=== PATIENT | male | born 1955 | race Caucasian/White ===

== ENCOUNTER 2023-09-19 06:06 | Observation (INO) ==
[~2023-09-19 06:06] MED LIST: HYDROmorphone 1 MG/1 ML SYRINGE IV PRN; Naloxone 0.4 mg VIAL 0.4 mg/ml 1 ml VIAL IV PRN; Ondansetron 4 mg VIAL 2 MG/ML 2 ml VIAL IV PRN; fentaNYL 100 mcg/2 ml 50 MCG/ML VIAL IV PRN
[2023-09-19] MEDS ORDERED: ROPIVACAINE 5 MG/ML 30 ML BTL (0.5%) ONE ×2 (07:10→09:52)
[2023-09-19] MEDS ORDERED: Tranexamic Acid 1 GM/100ML BAG 2,000 MG/200 ML BAG IV ONE (07:23)
[2023-09-19] MEDS ORDERED: ceFAZolin 2 GM PREMIX 2 GM/50 ML BAG ONE (07:23)
[2023-09-19] MEDS ORDERED: Midazolam 2 mg/2 ml VIAL 1 mg/ml 2 ml VIAL (2 mg) ONE (07:33)
[2023-09-19 07:36] LABS: Rapid COVID-19 Molecular Undetected (Undetected)
[2023-09-19] MEDS: Lactated Ringers 1000 ml BAG 1,000 ML IV SCH ×2 (07:44→12:52)
[2023-09-19] MEDS: Buffered Lidocaine 1% SYRIN 1 ml INTRADERM ONE (07:44)
[2023-09-19] MEDS ORDERED: Phenylephrine IV 10 MG/ML 1 ml VIAL ONE (08:29)
[2023-09-19] MEDS ORDERED: Lidocaine 2% PF 5 ML VIAL ONE (08:29)
[2023-09-19] MEDS ORDERED: Propofol 1,000 MG/100 ML BTL ONE (08:29)
[2023-09-19] MEDS ORDERED: Morphine 2 MG/ML SYRINGE IV PRN (10:20)
[2023-09-19] MEDS ORDERED: Magnesium Hydroxide LIQ 30 ML UDC PO PRN (10:20)
[2023-09-19] MEDS ORDERED: Ondansetron 4 mg VIAL 2 MG/ML 2 ml VIAL IV PRN (10:20)
[2023-09-19] MEDS ORDERED: Lactulose 30 ml UDC PO PRN (10:20)
[2023-09-19] MEDS ORDERED: Ondansetron ODT 4 mg TAB 4 MG TAB PO PRN (10:20)
[2023-09-19] MEDS ORDERED: Calcium Carb (TUMS) 500 mg CHEW TAB PO PRN (13:47)
[2023-09-19] MEDS: ceFAZolin 1 GM ADVAN 1 GM in NS 0.9% 50 ML 50 ML IVPB SCH (17:26)
[2023-09-19 17:27] VITALS: BP 132/73
[2023-09-19] MEDS ORDERED: Magnesium Hydroxide LIQ 30 ML UDC PO SCH (21:00)
[2023-09-20] MEDS ORDERED: Vitamin THERAPEUTIC TAB PO SCH (09:00)
== END 2023-09-19 18:30 | disposition home or self-care (01) ==
LOC: INTOOBSV 06:06 → AA 06:06 → SSU 10:20
PROVIDERS: ADMIT Orthopaedic Surgery Adult Reconstructive Orthopaedic Surgery; ATTEND Orthopaedic Surgery Adult Reconstructive Orthopaedic Surgery

== ENCOUNTER 2024-09-15 05:45 | Observation (INO) ==
[~2024-09-15 05:45] MED LIST changes: -HYDROmorphone 1 MG/1 ML SYRINGE IV PRN; +Metoclopramide 5 MG/ML VIAL (10 mg) IV PRN; +NS 0.45% 1000 ml BAG 1,000 ML IV SCH
[2024-09-15] MEDS ORDERED: Tranexamic Acid 1 GM/100ML BAG 2,000 MG/200 ML BAG IV ONE (06:13)
[2024-09-15] MEDS ORDERED: ceFAZolin 2 GM PREMIX 2 GM/50 ML BAG ONE (06:13)
[2024-09-15] MEDS ORDERED: ROPIVACAINE 5 MG/ML 30 ML BTL (0.5%) ONE (06:29)
[2024-09-15] MEDS ORDERED: Midazolam 2 mg/2 ml VIAL 1 mg/ml 2 ml VIAL (2 mg) ONE ×2 (06:49→07:27)
[2024-09-15] MEDS: Lactated Ringers 1000 ml BAG 1,000 ML IV SCH ×2 (06:49→14:22)
[2024-09-15] MEDS ORDERED: Phenylephrine IV 10 MG/ML 1 ml VIAL ONE (06:50)
[2024-09-15] MEDS ORDERED: fentaNYL 100 mcg/2 ml 50 MCG/ML VIAL ONE (06:50)
[2024-09-15] MEDS ORDERED: Lidocaine 2% PF 5 ML VIAL ONE (06:50)
[2024-09-15] MEDS: Buffered Lidocaine 1% SYRIN 1 ml INTRADERM ONE (06:50)
[2024-09-15 06:55] LABS: Rapid COVID-19 Molecular Undetected (Undetected)
[2024-09-15] MEDS ORDERED: Ondansetron ODT 4 mg TAB 4 MG TAB PO PRN (08:04)
[2024-09-15] MEDS ORDERED: Magnesium Hydroxide LIQ 30 ML UDC PO PRN (08:04)
[2024-09-15] MEDS ORDERED: Calcium Carb (TUMS) 500 mg CHEW TAB PO PRN (08:04)
[2024-09-15] MEDS ORDERED: Ondansetron 4 mg VIAL 2 MG/ML 2 ml VIAL IV PRN (08:04)
[2024-09-15] MEDS ORDERED: Morphine 2 MG/ML SYRINGE IV PRN (08:04)
[2024-09-15] MEDS ORDERED: Lactulose 30 ml UDC PO PRN (08:04)
[2024-09-15] MEDS ORDERED: Ondansetron 4 mg VIAL 2 MG/ML 2 ml VIAL ONE (08:18)
[2024-09-15] MEDS ORDERED: KETAMINE HCL 10 MG/ML 20 ml VIAL (200 MG) ONE (08:18)
[2024-09-15] MEDS ORDERED: Dexamethasone IV 4 MG/ML VIAL 1 ml VIAL ONE (08:18)
[2024-09-15] MEDS ORDERED: Propofol 10 MG/ML 20 ML BTL ONE (08:57)
[2024-09-15] MEDS: Acetaminophen IV 1 GM/100ML 1,000 MG/100 ML BAG IV ONE (13:01)
[2024-09-15] MEDS: ceFAZolin 2 GM PREMIX 2 GM/50 ML BAG IV SCH (13:02)
[2024-09-15] MEDS: Magnesium Hydroxide LIQ 30 ML UDC PO SCH (13:02)
[2024-09-15] MEDS: Vitamin THERAPEUTIC TAB PO SCH (13:02)
[2024-09-15] MEDS: Scopolamine 1 mg/72hr PATCH TRANSDERM ONE (13:27)
[2024-09-15 14:47] VITALS: BP 149/76
== END 2024-09-15 17:00 | disposition home or self-care (01) ==
LOC: OR 05:45 → SSU 05:45
PROVIDERS: ADMIT Orthopaedic Surgery Adult Reconstructive Orthopaedic Surgery; ATTEND Orthopaedic Surgery Adult Reconstructive Orthopaedic Surgery